=== PATIENT | female | born 1945 | race Caucasian/White ===

== ENCOUNTER 2020-11-30 07:40 | Outpatient (CLI) | payer MEDICARE, SELFPAY ==
--- NOTE | ~2020-11-30 | MM_ITS ---
EXAMINATION: MM screening [facility] BI w neal HISTORY: Screening TECHNIQUE: Craniocaudal and mediolateral oblique 3-D tomosynthesis images were obtained and synthetic 2-D images were generated. CAD analysis was submitted and interpreted. COMPARISON: Comparison to multiple prior studies sequentially, with oldest reviewed study dated 02/17. BREAST PARENCHYMAL COMPOSITION: There are scattered areas of fibroglandular density. FINDINGS: There is no evidence of suspicious mass, calcification, or architectural distortion to sugg est malignancy in either breast. There has been no suspicious interval change. IMPRESSION: 1. No mammographic evidence of malignancy. 2. Recommend routine screening mammography in one year. BI-RADS Category 1: Negative Reviewed, dictated and finalized at location A.
== END 2020-11-30 07:41 | disposition home or self-care (01) ==
LOC: ANHIMG 07:46
PROVIDERS: PCP Student in an Organized Health Care Education/Training Program; Visit Provider Student in an Organized Health Care Education/Training Program
DX: Z12.31 Encounter for screening mammogram for malignant neoplasm of breast (principal)
CPT/HCPCS: 77063; 77067

== ENCOUNTER 2021-09-06 08:38 | Outpatient (CLI) | payer MEDICARE, SELFPAY ==
--- NOTE | ~2021-09-06 | DEXA_ITS ---
Bone Density Report Name: NOREEN HERNÁNDEZ Age: 75 Sex: Female Ethnicity: White Date of : 1945 Indication: osteopenia; height loss; postmenopausal Referring Provider: DIOR, ISI Study: Bone densitometry was performed. Exam Date: September 06, 2021 Accession number: [id number] Bone Density: Region BMD T-score Z-score Classification AP Spine(L2, L3) 1.438 3.5 5.8 Normal Femoral Neck (Left) 0.633 -1.9 0.1 Osteopenia Total Hip (Left) 0.761 -1.5 0.2 Osteopenia Femoral Neck (Right) 0.792 -0.5 1.5 Normal Total Hip (Right) 0.784 -1.3 0.4 Osteopenia Total Hip Mean 0.773 -1.4 0.3 Osteopenia World Health Organization criteria for BMD impression classify patients as: Normal (T-score at or above -1.0), Osteopenia (T-score between -1.0 and -2.5), or Osteoporosis (T-score at or below -2.5). 10-year Fracture Risk(1): Major Osteoporotic Fracture 12% Hip Fracture 2.7% Reported Risk Factors: [place] (), Neck BMD=0.633, BMI=29.6 (1) FRAX(R) Version 3.08. Fracture probability calculated for an untreated patient. Fracture probability may be lower if the patient has received treatment. Previous Exams: Region Exam Age BMD T-score BMD Change BMD Change Date g/cm2 vs Baseline vs Previous AP Spine (L2-L3) 09/06/2021 75 1.438 3.5 0.000 (0.0%) 0.000 (0.0%) 12/20/2018 73 1.437 3.4 Total Hip(Left) 09/06/2021 75 0.761 -1.5 -0.015 (-2.0%) -0.015 (-2.0%) 12/20/2018 73 0.777 -1.4 Total Hip(Right) 09/06/2021 75 0.784 -1.3 -0.040 (-4.9%) -0.040 (-4.9%) 12/20/2018 73 0.824 -1.0 *Denotes significance at 95% confidence level, LSC for AP Spine = 0.022 g/cm2, LSC for Total Hip = 0.027 g/cm2 Clinical Information Provided by Patient: Patient maximum height was 66 Menopause Age: 56 Drinks caffeinated beverages Onset of menses at age 15 Number of children 1 Impression: The patient has low bone mass, based on the Left Femoral Neck T-score. The patient has an estimated ten-year risk of hip fracture of 2.7% and an estimated ten-year risk of major fracture of 12%, based on the WHO FRAX algorithm. The BMD for the Total Hip(Right) decreased, changing by -4.9% since the last DXA exam. Discussion: BONE DENSITY IS LOW AT ONE OR MORE SKELETAL SITES. This patient's lowest T-score is low at one or more skeletal sites. It meets the World Health Organization's (WHO) criteria for ?low bone mass? (T-score between -1.
== END 2021-09-06 08:39 | disposition home or self-care (01) ==
LOC: ANHIMG 08:40
PROVIDERS: PCP Student in an Organized Health Care Education/Training Program; Visit Provider Student in an Organized Health Care Education/Training Program
DX: M85.851 Other specified disorders of bone density and structure, right thigh (principal); M85.852 Other specified disorders of bone density and structure, left thigh
CPT/HCPCS: 77080

== ENCOUNTER 2022-07-20 13:43 | Outpatient (CLI) | payer MEDICARE, SELFPAY ==
--- NOTE | ~2022-07-20 | MM_ITS ---
EXAMINATION: MM screening [facility] BI w neal HISTORY: Screening mammogram TECHNIQUE: Craniocaudal and mediolateral oblique 3-D tomosynthesis images were obtained and synthetic 2-D images were generated. CAD analysis was submitted and interpreted. COMPARISON: 12/01/2019, 11/01/2018, 09/06/2018 BREAST PARENCHYMAL COMPOSITION: The breasts are almost entirely fatty. FINDINGS: No suspicious mass, calcification, or architectural distortion are identified in either jes ast to suggest malignancy. There has been no suspicious interval change. IMPRESSION: 1. No mammographic evidence of malignancy. 2. Recommend routine screening mammography in one year. BI-RADS Category 1: Negative Reviewed, dictated and finalized at location A.
== END 2022-07-20 13:44 | disposition home or self-care (01) ==
LOC: ANHIMG 13:47
PROVIDERS: PCP Student in an Organized Health Care Education/Training Program; Visit Provider Student in an Organized Health Care Education/Training Program
DX: Z12.31 Encounter for screening mammogram for malignant neoplasm of breast (principal)
CPT/HCPCS: 77063; 77067

== ENCOUNTER 2023-04-30 07:40 | Emergency (ER) | payer MEDICARE, SELFPAY ==
--- NOTE | ~2023-04-30 | XR_ITS ---
EXAMINATION: XR knee LT 3V DATE: 04/30/2023 07:59 INDICATION: Left knee injury. TECHNIQUE: 3 views of left knee were obtained. COMPARISON: Left knee radiographs 10/15/2018 FINDINGS: There is a total left knee arthroplasty. There is a transverse periprosthetic fracture of d istal femoral metaphysis. The distal fracture fragment demonstrates 33 degrees posterior angulation, 18 degrees posterior displacement, 16 degrees lateral angulation, and 3 mm lateral displacement. Ther e are osteophytes of the patella. There is at least a a small knee joint effusion. IMPRESSION: 1. Transverse periprosthetic fracture of distal femoral metaphysis. Reviewed, dictated and finalized at location A. NT SERVICES ACCOUNT MANAGER
[2023-04-30 07:44] VITALS: BP 105/84; PULSE 72; RESP 18; TEMP 37; O2SAT 95
[2023-04-30] MEDS: MORPHINE SULFATE (*CRX) 4 MG/ML INJ IV PUSH ×2 (08:12→09:54)
--- NOTE | 2023-04-30 08:31 | ED.FALL ---
HPI - Fall General Chief Complaint: Fall Stated Complaint: KNEE INJURY Time Seen by Provider: 04/30/23 07:51 History of Present Illness HPI Narrative: Patient is a 77-year-old female who presents ER after suffering injury to her left knee. Patient has history of knee replacement on left side. She was walking outside in some poor fitting shoes taking out the trash when she slipped and fell. She fell onto her right side landing on her right hip however she twisted at her left knee and felt a pop. No numbness or tingling. She continues to have pain despite morphine from EMS. She denies any numbness or tingling to the affected extremity. She did not strike her head or lose consciousness. She is not on blood thinners. Related Data Allergies Allergy/AdvReac Type Severity Reaction Status Date / Time No Known Allergies Allergy Unverified 12/27/17 11:09 Review of Systems Review of Systems: All systems reviewed & are unremarkable except as noted in HPI and below Musculoskeletal: Musculoskeletal: Denies back pain, Reports arthralgias, Reports joint swelling and Denies muscle cramps Neurologic: Reports system reviewed and no additional complaints, except as documented PMFSH Past Medical History Medical History (Updated 04/30/23 @ 17:55 by Apolinar Patiño MD) Benign essential hypertension Chronic GERD Hyperlipidemia, unspecified Surgical History Surgical History (Updated 04/30/23 @ 08:35 by Apolinar Patiño MD) Hx of total knee arthroplasty Bilateral - Dr. Acevedo Family History Family History (Updated 11/14/13 @ 07:13 by DOCTOR UNKNOWN) Mother Hypertension Family history of arthritis Social History Social History Smoking status: Never smoker Alcohol intake: current Exam Narrative: GENERAL: Well-appearing, well-nourished, and in no acute distress. HEAD: Normocephalic, atraumatic. ENT: Mucous membranes moist. NECK: Supple. CHEST: Clear to auscultation. No respiratory distress. HEART: Regular rate and rhythm. Normal peripheral pulses. EXTREMITIES: Limited ROM at left knee due to pain/injury. Swelling of left knee with tenderness proximal to the joint. LLE NV intact. Normal BUE/RLE. SKIN: Warm, dry, no rash. NEURO: Alert and oriented x3. PSYCH: Normal mood and affect. Course Course Emergency Course: Patient educated about severity of her fracture. I have called [facility]. The patient has been accepted to the ER by Dr. Benavides. She will be transferred by [facility]. Patient is stable. Vital Signs Vital signs: Vital Signs Temperature 98.6 F 04/30/23 07:44 Pulse Rate 72 04/30/23 07:44 Respiratory Rate 18 04/30/23 07:44 Blood Pressure 105/84 04/30/23 07:44 Pulse Oximetry 95 04/30/23 07:44 Temperature 98.6 F 04/30/23 07:44 Pulse Rate 72 04/30/23 08:45 Respiratory Rate 18 04/30/23 08:45 Blood Pressure 123/50 L 04/30/23 08:45 Pulse Oximetry 98 04/30/23 08:45 MDM - Fall Imaging Data Radiologist's impression: ITS Impressions Knee X-Ray 04/30/23 08:07 IMPRESSION: 1. Transverse periprosthetic fracture of distal femoral metaphysis. Critical Care Time Critical Care Time Critical Care Time: Yes Total Critical Care Time: 35 Discharge Plan Discharge Clinical Impression: Periprosthetic fracture around internal prosthetic left knee joint Patient Disposition: Acute Care Hospital Condition: Stable Prescriptions: No Action lisinopril 10 mg tablet 10 mg PO DAILY Qty: 90 1RF Follow-up/Referrals: Radha,DO Harpreet [Primary Care Provider] -
[2023-04-30 08:45] VITALS: BP 123/50; PULSE 72; RESP 18; O2SAT 98
== END 2023-04-30 10:53 | disposition short-term general hospital (02) ==
LOC: ANHED 08:11
PROVIDERS: Emergency Provider Emergency Medicine; PCP Student in an Organized Health Care Education/Training Program
DX: S79.192A Other physeal fracture of lower end of left femur, initial encounter for closed fracture (principal); M97.12XA Periprosthetic fracture around internal prosthetic left knee joint, initial encounter; I10 Essential (primary) hypertension; E78.5 Hyperlipidemia, unspecified; K21.9 Gastro-esophageal reflux disease without esophagitis; Z96.653 Presence of artificial knee joint, bilateral; W01.0XXA Fall on same level from slipping, tripping and stumbling without subsequent striking against object, initial encounter
CPT/HCPCS: 73562; 96374; 96376; 99285; J2270

== ENCOUNTER 2023-07-03 10:00 | Outpatient (RCR) | payer MEDICARE, SELFPAY ==
--- NOTE | 2023-05-30 08:59 | OPREHPOC ---
Outpatient Therapy Plan of Care This is a Multidisciplinary Plan of Care that may contain components documented by all disciplines (PT, OT, and ST.) PT Problem 1 PT Problem #1 Knowledge Deficit PT Goal 1 Goal 1. Patient will perform independent HEP Target Visit 5 PT Problem 2 PT Problem #2 Pain PT Goal 1 Goal 1. Pt able to do all normal household activities without pain Target Visit 10 PT Problem 3 PT Problem #3 Impaired Range of Motion PT Goal 1 Goal 1. Improve left knee flexion to 120 degrees for stair navigation Target Visit 10 PT Problem 4 PT Problem #4 Impaired Functional Mobil PT Goal 1 Goal 1. Patient able to navigate at least 300 feet on the 2 minute walk test without assistive device Target Visit 10
--- NOTE | 2023-05-30 08:59 | PTOPEVAL1 ---
Assessment and note entered by Raven Montanez DPT Evaluation Information Assessment Status Evaluation Subjective Information Pt had a fall on 04/30/23, states her shoes were slick and she slipped while taking her trash out, and fractured her left femur. Was sent to [facility] first, then to [facility] and had surgery there on (open reduction internal fixation left distal femur fracture). Was released on 05/04/23. Had home health therapy and has been discharged. Pt went home using a walker and has now recently been using a quad cane and is WBAT. No previous assistive device use. Highest pain 3/10 and lowest 0/10. Pt is not yet driving. States she has been able to do some light cooking and cleaning, her is doing the heavier activities but she normally would be doing them including yard work. Has 12 stairs to basement laundry and living room, both feet on each step. Returns to [place] 06/20/23. Patient goal: get back to normal. Pt has had two previous TKAs. Reported Pain Level Pain Score 0: Self Report Assessment PT Clinical Summary The patient is presenting to skilled therapy s/p L open reduction internal fixation left distal femur fracture on 05/01/23. She presents with greatly decreased knee flexion, decreased LE strength, and gait/stair impairments which are contributing to her pain and difficulty performing typical activities at home and walking without a device. She will highly benefit from therapy to address these impairments in order to safely reduce pain and improve function. Plan of Care Interventions Electrical Stimulation,Gait Training,Hot Pack/Cold Pack,Manual Therapy,Neuro Re-education,Patient/ Caregiver Education,Therapeutic Activities, Therapeutic Exercise PT Services Indicated Yes Treatment Frequency and 2 times a week for 10 visits Duration These treatments will address the objective and functional deficits as defined above. The patient will be advanced safely and appropriately in order for the patient to progress towards his/her prior level of function. Additional exercises will be introduced and as well as a comprehensive home exercise program upon discharge, if needed, ?to ensure carryover of functional gains achieved in the clinic. This treatment plan has been reviewed and agreement upon by the patient.
--- NOTE | 2023-07-03 10:43 | PTOPDC ---
Assessment and note entered by Rozina Thomas, PT Discharge Information Assessment Status Discharge Subjective Information use the cane only when go distances; have returned to doing all of her in home things; when walking out in the yard, use walking stick for balance; ready to be released from therapy; Reported Pain Level Pain Score 0: Self Report Assessment PT Clinical Summary Alma Delia has received 10 PT sessions. Compared to the initial evaluation, she has improved in all areas: decrease to no pain in the past week, returned to all of her usual tasks; self assessment with LE functional rating from 64 to 11% limitation in activity; knee flexion from 85' to 105'; 2 minute walking test distance from 261' with quad cane to 450' without device. Education completed for HEP and plan for d/c. The goals were achieved. Discharge PT services. She is to continue with HEP and increase activity as able. Plan of Care PT Services Indicated No
== END 2023-07-03 12:32 | disposition home or self-care (01) ==
LOC: ANHPT 10:00
PROVIDERS: PCP Student in an Organized Health Care Education/Training Program
DX: S72.452D Displaced supracondylar fracture without intracondylar extension of lower end of left femur, subsequent encounter for closed fracture with routine healing (principal)
CPT/HCPCS: 97110; 97116; 97161; 97530

== ENCOUNTER 2023-10-10 08:48 | Outpatient (CLI) | payer MEDICARE, SELFPAY ==
--- NOTE | ~2023-10-10 | MM_ITS ---
EXAMINATION: MM screening [facility] BI w neal HISTORY: Screening TECHNIQUE: Craniocaudal and mediolateral oblique 3-D tomosynthesis images were obtained and synthetic 2-D images were generated. CAD analysis was submitted and interpreted. COMPARISON: Comparison to multiple prior studies sequentially, with oldest reviewed study dated 02/17. BREAST PARENCHYMAL COMPOSITION: Not dense: There are scattered areas of fibroglandular density. FINDINGS: There is no evidence of suspicious mass, calcification, or architectural distortion to sugg est malignancy in either breast. There has been no suspicious interval change. IMPRESSION: 1. No mammographic evidence of malignancy. 2. Recommend routine screening mammography in one year. BI-RADS Category 1: Negative Reviewed, dictated and finalized at location B.
== END 2023-10-10 08:49 | disposition home or self-care (01) ==
LOC: ANHIMG 08:49
PROVIDERS: PCP Student in an Organized Health Care Education/Training Program; Visit Provider Student in an Organized Health Care Education/Training Program
DX: Z12.31 Encounter for screening mammogram for malignant neoplasm of breast (principal)
CPT/HCPCS: 77063; 77067

== ENCOUNTER 2024-09-10 07:56 | Outpatient (CLI) | payer MEDICARE, SELFPAY ==
--- NOTE | ~2024-09-10 | DEXA_ITS ---
Bone Density Report Name: NOREEN HERNÁNDEZ Age: 78 Sex: Female Ethnicity: White Date of : 1945 Indication: osteopenia; height loss; prior fracture; Referring Provider: MARIO ESPINOZA Study: Bone densitometry was performed. Exam Date: September 10, 2024 Accession number: [id number] Bone Density: Region BMD T-score Z-score Classification AP Spine(L1-L4) 1.412 3.3 5.8 Normal Femoral Neck (Right) 0.806 -0.4 1.8 Normal Total Hip (Right) 0.805 -1.1 0.8 Osteopenia World Health Organization criteria for BMD impression classify patients as: Normal (T-score at or above -1.0), Osteopenia (T-score between -1.0 and -2.5), or Osteoporosis (T-score at or below -2.5). 10-year Fracture Risk(1): Major Osteoporotic Fracture 13% Hip Fracture 1.4% Reported Risk Factors: [place] (), Neck BMD=0.806, BMI=32.8, previous fracture (1) FRAX(R) Version 3.08. Fracture probability calculated for an untreated patient. Fracture probability may be lower if the patient has received treatment. Previous Exams: Region Exam Age BMD T-score BMD Change BMD Change Date g/cm2 vs Baseline vs Previous Total Hip(Right) 09/10/2024 78 0.805 -1.1 -0.019 (-2.3%) 0.021 (2.7%) 09/06/2021 75 0.784 -1.3 -0.040 (-4.9%) -0.040 (-4.9%) 12/20/2018 73 0.824 -1.0 *Denotes significance at 95% confidence level, LSC for Total Hip = 0.027 g/cm2 Clinical Information Provided by Patient: Has had a low trauma fracture Has used the following medications: Vitamin D, Calcium Patient maximum height was 66 Menopause Age: 56 Drinks caffeinated beverages Onset of menses at age 13 Number of children 1 Impression: The patient has low bone mass, based on the Right Total Hip T-score. The patient has an estimated ten-year risk of hip fracture of 1.4% and an estimated ten-year risk of major fracture of 13%, based on the WHO FRAX algorithm. The patient has risk factors, including: previous fracture. No significant bone loss was observed. Discussion: BONE DENSITY IS LOW AT ONE OR MORE SKELETAL SITES. This patient's lowest T-score is low at one or more skeletal sites. It meets the World Health Organization's (WHO) criteria for ?low bone mass? (T-score between -1.0 and -2.5). The patient's 10-year risk of fracture as calculated by FRAX is less than the threshold where pharmacological therapy is recommended by the National Osteoporosis Foundation (NOF). However, all treatment decisions require clinical judgment and consideration of individual patient factors, including patient preferences, comorbidities, previous drug use, risk factors not captured in the FRAX model (e.g., frailty, falls, vitamin D deficiency, increased bone turnover, interval significant decline in bone density) and possible under or overestimation of fracture risk by FRAX. The patient should follow a healthful lifestyle (good nutrition with adequate calcium and vitamin D, and appropriate weight-bearing exercise). Follow-Up: Consider repeating this study in 2 to 3 years to reassess this patient's status, or sooner if there is some new clinical indication. Reported by: CARLY on 09/10/2024 8:53:00 AM. Reviewed, dictated and finalized at location A.
== END 2024-09-10 07:57 | disposition home or self-care (01) ==
PROVIDERS: PCP Family Medicine; Visit Provider Family Medicine
DX: N95.9 Unspecified menopausal and perimenopausal disorder (principal); M85.851 Other specified disorders of bone density and structure, right thigh
CPT/HCPCS: 77080

== ENCOUNTER 2024-11-04 15:01 | Outpatient (CLI) | payer MEDICARE, SELFPAY ==
--- NOTE | ~2024-11-04 | MM_ITS ---
EXAMINATION: MM screening yolande BI w neal HISTORY: Screening mammogram TECHNIQUE: Craniocaudal and mediolateral oblique 3-D tomosynthesis images were obtained and synthetic 2-D images were generated. CAD analysis was submitted and interpreted. COMPARISON: 10/10/2023, 07/20/2022, 11/30/2020 BREAST PARENCHYMAL COMPOSITION:Not Dense. The breasts are almost entirely fatty FINDINGS: No suspicious mass, calcification, or architectural distortion are identified in either breast to suggest malignancy. There has been no suspicious interval change. IMPRESSION: No mammographic evidence of malignancy. Recommend routine screening mammography in one year. BI-RADS Category 1: Negative Reviewed, dictated and finalized at location .
--- OUTSIDE RECORDS SUMMARY | 2024-11-04 15:55 | XMS_ITS | Clinical Summary ---
Author Organization [facility] Address [address] [place] [address] [address] Man Name Role Phone Benjamin Adkins MD Primary Care Provider [phone] Source Comments [facility],non-owned Affiliates and Associated Physician Practices is amultiple site organization consisting of ambulatory clinics and hospital sitesin [place], [place], [place] and [place]. This disclosure is being madepursuant to the Care Everywhere program and may not contain all information available regarding this patient. Last updated 17.[facility] Allergies No known active allergies Medications * Be aware that medications may not be up to date on this document. Alwaysverify current medications with the patient. Medication Sig Dispense Quantity Refills Last Filled Start D ate End Date Status LISINOPRIL PO Active Immunizations Immunization Administration Dates Next Due INFLUENZA VACCINE, HIGH-DOSE , QUADR. (FLUZONE HIGH-DOSE QUADRIVALENT; 65Y+), 0.7 ML (HD-IIV4) 01/13/2016 Social History Tobacco Use Types Packs/Day Years Used Date Smoking Tobacco: Never Assessed Comments Unknown Sex and Gender Information Value Date Recorded Sex Assigned at Not on file Legal Sex Female 10:05 AM CDT Gender Identity Not on file Sexual Orientation Not on file Plan of Treatment Health Maintenance Due Date Last Done Comments BONE DENSITY TESTING 1945 HEPATITIS C SCREENING 12/05/1965 DTAP/TDAP/TD VACCINES (1 - Tdap) 12/09/1966 PNEUMOCOCCAL VACCINE 50+ (1 of 1 - PCV) 12/09/1997 ZOSTER VACCINE (1 of 2) 12/09/1997 Respiratory Syncytial Virus (RSV) Vaccine Pt: or over 60 yrs (1 - 1-dose 75+ series) 12/09/2022 COVID-19 VACCINE (1 - 2023-2 5 season) 2023 DEPRESSION SCREENING 03/20/2024 INFLUENZA VACCINE (#1) 2024 01/13/2016 HEPATITIS B VACCINE Aged Out No longe r eligible based on patient's age to complete this topic HIB VACCINE Aged Out No longer eligi ble based on patient's age to complete this topic HPV VACCINE Aged Out No longer eligi ble based on patient's age to complete this topic MENINGOCOCCAL (Group B) VACC INE SHARED DECISION-MAKING Aged Out No longer eligibl e based on patient's age to complete this topic MENINGOCOCCAL GROUPS A/C/Y/W VACCINE Aged Out No longer eligible b ased on patient's age to complete this topic Insurance [address] [place], [place] [id number] COVENTRY MEDICARE Care Teams Drive Man Relationship Specialty Start Date End Date Benjamin Adkins MD [address] [place] [id number] PCP - General 12/28/17
--- OUTSIDE RECORDS SUMMARY | 2024-11-04 15:55 | XMS_ITS | Clinical Summary ---
Author Organization [facility] [address] Address [address] [facility] [place] [address] Care Team Providers Care Dairy Helper Name Role Phone Unavailable Primary Care Provider Unavailabl e Allergies No known active allergies Medications lisinopril (PRINIVIL,ZESTRI L) 10 mg tablet 08/15/2017 Act lb ezetimibe (ZETIA) 10 mg tablet Take 1 tablet (10 mg total) by mouth daily Active Active Problems Problem Noted Date Diagnosed Date ABLA (acute blood loss anemia) 05/03/2023 Assessment & Plan (05/04/2023 10:00 AM BODY WELDER): - Hgb trend: 14.2- 12.8- 9.4- 8.8- 7.5- 8.0 - Transfuse for Hgb <7.0 or symptomatic - CBC was monitored, no active signs or symptoms of bleeding, hemodynamically unsupported at discharge Closed displaced supracondyl ar fracture without intracondylar extension of lower end of left femur 05/01/2023 Assessment & Plan (05/04/2023 9:59 AM BODY WELDER): - Ortho consulted - 05/01: OR for Left periprosthetic supracondylar distal femur open reduction and internal fixation with retrograde intramedullary nail-lateral side plate combination technique - Hemovac in place - removed by Ortho - WBAT LLE post op - PT/OT - Dressing changes daily and as needed - Follow up with Ortho Trauma on 05/23/23 for stitch/staple removal Encounter for medication review 05/01/2023 Discharge planning issues 05/01/2023 Assessment & Plan (05/04/2023 9:58 AM BODY WELDER): - 05/01: OR with Ortho for ORIF with IMN - 05/02: CM initial assessment completed - 05/03: hemovac potentially will be removed today, patient working with PT for safe discharge home, monitor Hgb - 05/04: Hgb lateral, okay to discharge HTN (hypertension) 05/01/2023 Assessment & Plan (05/04/2023 9:58 AM BODY WELDER): #HLD - Home Simvastatin continued - Home Lisinopril held, will restart as needed - Monitor VS - Resume lisinopril at discharge Polyp of colon 07/17/2018 Osteopenia 07/17/2018 Hypertensive disorder 07/17/2018 Arthritis 07/17/2018 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 Monthly or less 05/01/2023 Q2: How many drinks containi ng alcohol do you have on a typical day when you are drinking? 1 or 2 05/01/2023 Q3: How often do you have si x or more drinks on one occasion? Never 05/01/2023 Personal Safety Answer Date Recorded Have you ever been in or are you currently in a harmful physical or emotional relationship or is someone making you feel afraid or unsafe? Denies 05/01/2023 Comments Unknown Sex and Gender Information Value Date Recorded Sex Assigned at Not on file Legal Sex Female 6:56 AM BODY WELDER Gender Identity Not on file Sexual Orientation Not on file Obstetrics History Last Filed Vital Signs Vital Sign Reading Time Taken Comments Blood Pressure 124/66 05/04/2023 8:20 AM BODY WELDER Pulse 90 05/04/2023 8:20 AM BODY WELDER Temperature 36.8 C (98.2 F) 05/04/2023 8:20 AM BODY WELDER Respiratory Rate 18 05/04/2023 8:20 AM BODY WELDER Oxygen Saturation 97% 05/04/2023 8:20 AM BODY WELDER Inhaled Oxygen Concentration - - Weight 81.7 kg (180 lb 1.9 oz) 05/03/2023 4:30 A M BODY WELDER Height 165.1 cm (5' 5) 05/03/2023 4:30 AM BODY WELDER Body Mass Index 29.97 05/03/2023 4:30 AM BODY WELDER Plan of Treatment Health Maintenance Due Date Last Done Comments Depression Screening 1945 Hepatitis C Screening 1945 Osteoporosis Screening-Bone Density Scan 1945 Hepatitis B Screening 12/09/1965 Well Visit 65+ 12/09/2012 Zoster Vaccine (3 of 3) 04/19/2023 02/22/2023, 12/06 Covid-19 Vaccine (2023-2 5 season) 2023 12/31/2022, 01/19/2022, 07/08/2021, Additional history exists Fall Risk Assessment 05/04/2024 05/04/2023 Influenza Vaccine (#1) 2024 , 01/19/2022, 02/10/2021, Additional history exists DTaP/Tdap/Td Vaccine (2 - Td or Tdap) 02/01/2029 02/01/2019 Pneumococcal vaccine 65+ Completed 02/10/2021, 12/19 Medical Devices Implanted Type Area Pastry Sous Chef Device Identifier Shelf Expiration Date Model / Serial / Lot Synthes 5mm 75mm Variable Angle Self Tap Lock Stardrive Condylar T25 .275 - [id number] Implanted:Qty: 2 on 05/01/2023 by Hima Wiseman MD at [facility] Left: Femur Synthes I .27 5 / / Synthes 5mm 80mm Variable Angle Self Tap Lock St[employer]rive Condylar T25 .280 - [id number] Implanted:Qty: 1 on 05/01/2023 by Hima Wiseman MD at [facility] Left: Femur Synthes I .28 0 / / Synthes 5mm 34mm Variable Angle Self Tap Lock Stardrive Condylar T25 02.231.234 - [id number] Implanted:Qty: 2 on 05/01/2023 by Hima Wiseman MD at [facility] Left: Femur Synthes I 02.231.23 4 / / Synthes 4.5mm 8mm 90mm Self Tap Large Hexagonal Socket Cortical Screw 214.890 - [id number] Implanted:Qty: 1 on 05/01/2023 by Hima Wiseman MD at [facility] Left: Femur Synthes I 214.890 / / [employer] Nail Intramedullary Femoral Retrograde T2 Alpha 67b233ee Titanium 2339-1024s - [id number] Implanted:Qty: 1 on 05/01/2023 by Hima Wiseman MD at [facility] Left: Femur [employer] [id number] 01/18/2032 4725-2196 S / / [id number] [employer] Screw Bone 5mm 75mm Lock Strl 2361-5075s - [id number] Implanted:Qty: 1 on 05/01/2023 by Hima Wiseman MD at [facility] Left: Femur [employer] [id number] 12/17/2032 0122-0673 S / / [id number] [employer] Screw Bone 5mm 60mm Lock Strl 2361-5060s - [id number] Implanted:Qty: 1 on 05/01/2023 by Hima Wiseman MD at [facility] Left: Femur [employer] [id number] 06/17/2032 6769-4974 S / / [id number] [employer] Screw Bone 5mm 55mm Lock Strl 2361-5055s - [id number] Implanted:Qty: 1 on 05/01/2023 by Hima Wiseman MD at [facility] Left: Femur [employer] [id number] 04/19/2029 6398-8338 S / / [id number] [employer] Screw Bone 5mm 32.5mm T2 Alpha Lock Strl 2360-5032s - [id number] Implanted:Qty: 1 on 05/01/2023 by Hima Wiseman MD at [facility] Left: Femur [employer] [id number] 09/17/20238282-1849 S / / [id number] [employer] Screw Bone 5mm 32.5mm T2 Alpha Lock Strl 2359-5032s - [id number] Implanted:Qty: 1 on 05/01/2023 by Hima Wiseman MD at [facility] Left: Femur [employer] [id number] 09/17/20232627-8440 S / / [id number] Synthes Lcp Combi 370mm 18 Hole 4 Column Thread Variable Angle Condylar 02.124.419 - [id number] Implanted:Qty: 1 on 05/01/2023 by Hima Wiseman MD at [facility] Left: Femur Synthes I 02.124.41 9 / / Synthes 4.5mm 8mm 32mm Self Tap Large Hexagonal Socket Cortex Screw Bone 214.832 - [id number] Implanted:Qty: 1 on 05/01/2023 by Hima Wiseman MD at [facility] Left: Femur Synthes I 214.832 / / Explanted Type Area Pastry Sous Chef Device Identifier Shelf Expiration Date Model / Serial / Lot [employer] Shmuel T2 3mm 285mm Retrograde Supracondylar Wire Fixation s - [id number] Explanted:Qty: 1 on 05/01/2023 by Hima Wiseman MD at [facility] Left: Femur [employer] [id number] 12/18/202718054714-0295 S / / [id number] Synthes 4.5mm 8mm 80mm Self Tap Large Hexagonal Socket Cortical Screw 214.880 - [id number] Explanted:Qty: 1 on 05/01/2023 by Hima Wiseman MD at [facility] Left: Femur Synthes I 214.880 / / [place] [address] AETNA MEDICARE AETNA MEDICARE Advance Directives For more information, please contact: [phone] * Full Code (Latest Code Status on File) Date Activated Date Inactivated Comments 04/30/2023 6:43 PM 05/04/2023 4:35 PM
--- OUTSIDE RECORDS SUMMARY | 2024-11-04 15:55 | XMS_ITS | Clinical Summary ---
Author Organization [facility] Address [address] [place] [address] Care Team Providers Care Medical Voucher Clerk Name Role Phone Harpreet Garcia Primary Care Provider + Allergies No known active allergies Medications vitamin D3, cholecalciferol, 1000 UNIT Tab tablet Take 1 tablet (25 mcg total) by mouth daily. Active probiotic capsule Take 1 capsule by mouth daily with breakfast. Active CALCIUM ACETATE OR Take 750 mg by mouth daily. Active lisinopril (PRINIVIL) 10 MG tabletIndications:H ypertensive disorder Take 1 tablet by mouth once daily 90 tablet 4 Active ezetimibe (ZETIA) 10 MG tabletIndications:H yperlipidemia, unspecified hyperlipidemia type Take 1 tablet by mouth once daily 90 tablet 4 Active Active Problems Problem Noted Date Diagnosed Date Hx of colonic polyp 07/18/2023 S/P ORIF (open reduction internal fixation) frac ture 06/12/2023 Essential (primary) hypertension 03/20/2022 BMI 29.0-29.9,adult 02/01/2019 Hypertensive disorder 07/17/2018 Osteopenia 07/17/2018 Arthritis 07/17/2018 Polyp of colon 07/17/2018 Combined forms of age-related cataract 7 Resolved Problems Problem Noted Date Diagnosed Date Resolved Date Screening for colon cancer 07/18/2023 0 07/24/2023 Screening for colon cancer 07/18/2023 0 08/14/2023 Closed displaced supracondyl ar fracture without intracondylar extension of lower end of left femur 05/01/2023 06/12/2023 Overview (06/12/2023): Last Assessment & Plan: - Ortho consulted - 05/01: OR for Left periprosthetic supracondylar distal femur open reduction and internal fixation with retrograde intramedullary nail-lateral side plate combination technique - Hemovac in place - removed by Ortho - WBAT LLE post op - PT/OT - Dressing changes daily and as needed - Follow up with Ortho Trauma on 05/23/23 for stitch/staple removal Anemia 07/17/2018 02/14/2022 Anxiety 07/17/2018 02/10/2021 Hyperthyroidism 07/17/2018 02/10/2021 Immunizations Immunization Administration Dates Next Due Arexvy Respiratory Syncytial Virus (RSV, adjuvanted) 0.5 mL, PF 02/22/2023 Fluzone High Dose - >Age 65 (Prefilled Syringe) 12/29/2022,01/19/2022,02/10/2021,2019,01/16/2019,01/08/2018,01/25/2017,1 ,01/11/2015 Influenza (Generic) 12/17/2012,12/08/2011,2008 Influenza Adult (Generic) 01/16/2019,,01/25/2017,2014,12/17/2012,12/08/2011,12/23/2008 PFIZER COVID-19 BIVALENT (12 +) mRNA, LNP-S, PF, 30 MCG/0.3 ML DOSE 01/19/2022 Pneumococcal (Pneumovax 23) 02/10/2021 Pneumococcal (Prevnar 13) 01/11/2015 Shingrix 02/22/2023 Tdap (Boostrix) 02/01/2019 Zoster (Zostavax) 84371 Unt/0.65Ml 12/06/2013 Family History Medical History Relation Comments Cancer Brother skin Hypertension Mother Hypertension Sister Relation Status Comments Brother Mother Sister Social History Tobacco Use Types Packs/Day Years Used Date Smoking Tobacco: Never Smokeless Tobacco: Never Tobacco Cessation:Counseling Given: No Alcohol Use Standard Drinks/Week Comments No 0 (1 standard drink = 0.6 oz pur e alcohol) AUDIT-C Answer Date Recorded Frequency of Alcohol Consumption Never 02/01/2019 Average Number of Drinks Not on file 019 Frequency of Binge Drinking Not on file 01/18 PHQ-2 Answer Date Recorded Patient Health Questionnaire-2 Score 0 06/12/2023 Comments No Sex and Gender Information Value Date Recorded Sex Assigned at Female 06/12/2023 2:28 PM CDT Legal Sex Female 1:44 PM RESEARCH AND DEVELOPMENT SPECIALIST Gender Identity Female 06/12/2023 2:28 PM CDT Sexual Orientation Not on file Last Filed Vital Signs Vital Sign Reading Time Taken Comments Blood Pressure 138/86 08/23/2023 11:40 AM CDT Pulse 82 08/23/2023 11:32 AM CDT Temperature 36.2 C (97.2 F) 08/23/2023 11:32 AM CDT Respiratory Rate 17 08/23/2023 11:32 AM CDT Oxygen Saturation 97% 08/23/2023 11:40 AM CDT Inhaled Oxygen Concentration - - Weight 76.2 kg (168 lb) 08/23/2023 9:42 AM CDT Height 165.1 cm (5' 5) 08/23/2023 9:42 AM CDT Body Mass Index 27.96 08/23/2023 9:42 AM CDT Plan of Treatment Health Maintenance Due Date Last Done Comments Annual Medicare Wellness Visit 12/09/2012 Zoster Vaccines (3 of 3) 04/19/2023 02/22/2023, 11/18 COVID-19 Vaccine ( season) 2023 12/31/2022, 01/19/2022, 07/08/2021, Additional history exists PHQ-2 (Physician Grayling) 03/20/2024 06/12/2023 DTaP, Tdap and Td Vaccines (2 - Td or Tdap) 02/01/2029 02/01/2019 Pneumococcal Vaccine: 50+ Years Completed 02/10/2021, 01/11/2015 Dexa Scan (General) Completed 09/06/2021, Hepatitis C Completed 02/02/2022 RSV Immunization or 60+ Years Completed 02/22/2023 Colorectal Cancer Screening Colonoscopy (10 Years) Discontinued 08/23/2023, 08/23/2023, 12/27/2017 Meningococcal B Vaccine Aged Out No l onger eligible based on patient's age to complete this topic Meningococcal Vaccine Aged Out No jorge mario eligible based on patient's age to complete this topic RSV Immunizations Under 20 Months Aged Out No longer eligible based on patient's age to complete this topic Medical Devices Implanted Type Area Coach Mechanic Device Identifier Shelf Expiration Date Model / Serial / Lot Clip Resolution 2.8mm 360 235cm 11mm Open - [id number] Implanted:Qty: 1 on 08/23/2023 by Gulshan Lopes DO at [facility] Clip Implant [employer] [id number] 10/28/2025 [id number] / [id number] / [id number] Procedures Procedure Name Priority Date/Time Associated Diagnosis Comments COLONOSCOPY Routine 08/23/2023 9:18 AM CDT HEPATITIS C ANTIBODY W/RFX TO HCV RNA Routine 02/02/2022 7:52 AM RESEARCH AND DEVELOPMENT SPECIALIST Need for hepatitis C screening test BONE DENSITY GENERIC (SCAN ORDER) 09/06/2021 from Last 3 Months or Most Recently Relevant to Health Maintenance Results * HEPATITIS C ANTIBODY W/RFX TO HCV RNA ([facility] ONLY) (02/02/2022 7:52 AM RESEARCH AND DEVELOPMENT SPECIALIST) HEPATITIS C AB NON-REACT ERNIE NON-REACT ERNIE [facility] SIGNAL TO CUTOFF 0.16 <1.00 [facility] Comment: HCV antibody was non-reactive. There is no laboratory evidence of HCV infection. In most cases, no further action is required. However, if recent HCV exposure is suspected, a test for HCV RNA (test code 73590) is suggested. For additional information please refer to http://education.mySBX/faq/DLO74r9 (This link is being provided for informational/ educational purposes only.) 02/02/2022 7:52 AM RESEARCH AND DEVELOPMENT SPECIALIST 02/03/2022 2:21 PM RESEARCH AND DEVELOPMENT SPECIALIST Narrative Resulting Agency Comment Performing Organization Information: Site ID: [place] Name: [facility] Address: [address] [address] Director: Emiliano Partida D.O., MPH us Harpreet Garcia DO LABORATORY Final Re sult [facility] [place] [id number] [id number], [place] * BONE DENSITY GENERIC (09/06/2021) Anatomical Region Laterality Modality Other 09/06/2021 Narrative 09/06/2021 Ordered by an unspecified provider. us Documents Scanned SCANNING Final Result * COLONOSCOPY GENERIC (12/27/2017) 12/27/2017 Narrative 12/27/2017 Ordered by an unspecified provider. us Documents Scanned SCANNING Final Result from Last 3 Months or Most Recently Relevant to Health Maintenance Insurance AETNA Advance Directives Documents on File Type Date Recorded Patient Loss Prevention/Safety District Manager Expl anation Legal Documents 02/04/2020 Care Teams Medical Voucher Clerk Relationship Specialty Start Date End Date Harpreet Garcia DO [address] [place] [id number] PCP - General FAMILY PRACTICE 11/7/19
--- OUTSIDE RECORDS SUMMARY | 2024-11-04 15:55 | XMS_ITS | Clinical Summary ---
Author Organization [facility] Address [address], [address] [address] Phone Care Team Providers Care Consulting Services Manager Name Role Phone Benjamin Adkins MD Primary Care Provider [phone] Allergies No known active allergies Medications lisinopril (PRINIVIL, ZESTRIL) 10 MG Tablet Take 10 mg by mouth daily. Active Family History Medical History Relation Name Comments Heart Disease Mother Relation Name Status Comments Mother Social History Tobacco Use Types Packs/Day Years Used Date Smoking Tobacco: Never Smokeless Tobacco: Never Alcohol Use Standard Drinks/Week Comments No 0 (1 standard drink = 0.6 oz pur e alcohol) Comments Unknown Sex and Gender Information Value Date Recorded Sex Assigned at Not on file Legal Sex Female 11:39 PM CDT Gender Identity Not on file Sexual Orientation Not on file Plan of Treatment Health Maintenance Due Date Last Done Comments Hepatitis C Virus (HCV) Screening 1945 TdaP Immunization 1945 Pneumococcal Immunization (5 0+ years) (1 of 1 - PCV) 12/09/1997 Zoster Immunization (1 of 2) 12/09/1997 Respiratory Syncytial Virus (RSV) Immunization (Adult) (1 - 1-dose 75+ series) 12/09/2022 SARS-COV-2 Immunization ( - 2023- season) 2023 Influenza Immunization (#1) 2024 Colonoscopy Discontinued 12/27/2017, 12/22/2011 Colorectal Cancer Screening Discontinued Cologuard Discontinued Hepatitis B Immunization Aged Out No longer eligible based on patient's age to complete this topic Human Papillomavirus (HPV) Immunization Aged Out No longer eligible based on patient's age to complete this topic Immunochemical Fecal Occult Blood Discontinued Meningococcal Immunization (ACWY) Aged Out No longer eligible based on patient's age to complete this topic Rotavirus Immunization Aged Out No lo nger eligible based on patient's age to complete this topic Procedures Procedure Name Priority Date/Time Associated Diagnosis Comments COLONOSCOPY Routine 12/27/2017 from Last 3 Months or Most Recently Relevant to Health Maintenance Results * COLONOSCOPY (12/27/2017) Gulshan Lopes DO PROCEDURE/MINOR SURGICAL ORDERA BLES Final Result from Last 3 Months or Most Recently Relevant to Health Maintenance Care Teams Consulting Services Manager Relationship Specialty Start Date End Date Benjamin Adkins MD PCP - General Internal Medicine 12/29/17
== END 2024-11-04 15:02 | disposition home or self-care (01) ==
LOC: ANHFOHIMG 15:02
PROVIDERS: PCP Family Medicine; Visit Provider Family Medicine
DX: Z12.31 Encounter for screening mammogram for malignant neoplasm of breast (principal)
CPT/HCPCS: 77063; 77067